=== PATIENT | female | born 1985 ===

== ENCOUNTER 2018-08-29 20:53 | Emergency (ER) | payer SELFPAY ==
[2018-08-29 22:18] VITALS: BP 124/79; PULSE 102; RESP 19; TEMP 99.3
--- NOTE | 2018-08-29 22:19 | C.PDOC ---
History Of Present Illness 33 y/o female pt presents to the ER c/o fever and sore throat for a couple of days. Pt denies headache, cough, chest pain and weakness. Pt did not take any medications at home. Pt has no other associated sx or complaints at this time. Time Seen by Provider: 08/29/18 21:10 Chief Complaint (Nursing): Fever History Per: Patient History/Exam Limitations: no limitations Onset/Duration Of Symptoms: Days Current Symptoms Are (Timing): Still Present Past Medical History Reviewed: Historical Data, Nursing Documentation, Vital Signs Vital Signs: Last Vital Signs Temp 101.2 F H 08/29/18 21:09 Pulse 89 08/29/18 21:05 Resp 18 08/29/18 21:05 BP 127/81 08/29/18 21:05 Pulse Ox 100 08/29/18 21:05 - Medical History PMH: Asthma Family History: States: No Known Family Hx - Social History Hx Alcohol Use: Yes Hx Substance Use: No - Immunization History Hx Tetanus Toxoid Vaccination: No Hx Influenza Vaccination: Yes Hx Pneumococcal Vaccination: No Review Of Systems Except As Marked, All Systems Reviewed And Found Negative. Constitutional: Positive for: Fever ENT: Positive for: Throat Pain Cardiovascular: Negative for: Chest Pain Respiratory: Negative for: Cough Neurological: Negative for: Weakness, Headache Physical Exam - Physical Exam Appears: Non-toxic, No Acute Distress Skin: Warm, Dry, No Rash Head: Normacephalic Eye(s): bilateral: Normal Inspection, PERRL, EOMI Nose: Normal Oral Mucosa: Moist Throat: Erythema, Exudate, Other (enlarged tonsils b/l) Neck: Normal ROM, Supple Chest: Symmetrical Cardiovascular: Rhythm Regular Respiratory: Normal Breath Sounds Neurological/Psych: Oriented x3, Normal Speech Gait: Steady ED Course And Treatment O2 Sat by Pulse Oximetry: 100 (RA) Pulse Ox Interpretation: Normal Progress Note: Pt given penicillin and motrin. Instructed to f/u with PMD in 1-2 days. Disposition Counseled Patient/Family Regarding: Diagnosis, Need For Followup - Disposition Disposition: HOME/ ROUTINE Disposition Time: 22:14 Condition: STABLE Additional Instructions: Please follow up with PMD Take meds as directed Return to ER if worse Prescriptions: Ibuprofen [Motrin] 600 mg PO Q6H #30 tab Penicillin VK [Penicillin VK Tab] 500 mg PO Q6 #28 tab Instructions: Strep Throat (DC) Forms: [facility] (Swiss) - Clinical Impression Clinical Impression: Pharyngitis - PA / [employer] / Resident Statement / has reviewed & agrees with the documentation as recorded. - Scribe Statement The provider has reviewed the documentation as recorded by the Scriborlando Bell Do All medical record entries made by the Scribe were at my direction and personally dictated by me. I have reviewed the chart and agree that the record accurately reflects my personal performance of the history, physical exam, medical decision making, and the department course for this patient. I have also personally directed, reviewed, and agree with the discharge instructions and disposition.
[2018-08-29 22:20] VITALS: O2SAT 100
== END 2018-08-29 22:39 | disposition home or self-care (01) ==
LOC: C.ER 20:53
DX: J02.9 Acute pharyngitis, unspecified (principal)